=== PATIENT | female | born 1960 | race Hispanic/Latino ===

== ENCOUNTER 2021-01-15 12:20 | Inpatient (IN) | payer MEDICARE ==
[~2021-01-15] VITALS: Ht 160 cm; Wt 71.7 kg
[2021-01-15] MEDS ORDERED: ONDANSETRON HCL INJ 2MG/ML 2ML 2 MG/ML VIAL IV STA (12:43)
[2021-01-15 13:09] LABS: BASOPHILS % 0.6 % (0.0-1.0); EOSINOPHILS # (AUTO) 0.1 (0.0-0.4); EOSINOPHILS % 2.2 % (0.0-6.0); HEMATOCRIT 35.8 % (34.2-44.1); LYMPHOCYTES # (AUTO) 0.5 (1.0-3.2); LYMPHOCYTES % 8.1 % (18.0-39.1); MEAN CORPUSCULAR HEMOGLOBIN 28.4 pg (28-32); MEAN CORPUSCULAR HGB CONC 30.7 g/dL (31-35); MEAN CORPUSCULAR VOLUME 92.5 fL (81-99); MONOCYTES # (AUTO) 0.5 (0.2-0.8); MONOCYTES % 8.3 % (4.4-11.3); NEUTROPHILS # (AUTO) 5.1 (2.1-6.9); NEUTROPHILS % 80.5 % (38.7-80.0); PLATELET COUNT 230 x10e3/uL (140-360); RED BLOOD COUNT 3.87 x10e6/uL (3.6-5.1); RED CELL DISTRIBUTION WIDTH 15.7 % (11.7-14.4)
[2021-01-15] MEDS: MORPHINE SULFATE INJ 4 MG/ML INJ 1ML IV PRN (13:11)
[2021-01-15] MEDS ORDERED: MORPHINE SULFATE INJ 4 MG/ML INJ 1ML ONE (13:16)
[2021-01-15] MEDS ORDERED: ONDANSETRON HCL INJ 2MG/ML 2ML 2 MG/ML VIAL ONE (13:17)
[2021-01-15 13:29] LABS: ALBUMIN 3.1 g/dL (3.5-5.0); ALBUMIN/GLOBULIN RATIO 0.6 (0.8-2.0); ANION GAP 17.5 mmol/L (8-16); CALCIUM 8.2 mg/dL (8.4-10.2); CREATININE, SERUM 3.39 mg/dL (0.57-1.11); POTASSIUM 4.5 mmol/L (3.5-5.1)
[2021-01-15] MEDS ORDERED: SODIUM CHLORIDE 0.9% 50ML 50 ML ONE ×2 (13:32→16:38)
[2021-01-15] MEDS ORDERED: IOPAMIDOL 370 MG/ML 200 ML INFUS..BTL INJ ONE (13:33)
[2021-01-15] MEDS ORDERED: CEFEPIME 1GM/NS 0.9% 50 ML 50 ML IV STA (15:52)
[2021-01-15] MEDS ORDERED: VANCOMYCIN 1GM/NS 250 ML 250 ML IV STA (15:52)
[2021-01-15] MEDS ORDERED: CEFEPIME HCL 1 GM VIAL ONE (16:38)
[2021-01-15 17:54] VITALS: BP 120/65
[2021-01-15 18:48] VITALS: BP 183/72
[2021-01-15] MEDS ORDERED: PNEUMOCOCCAL VACCINE POLYVALENT 23 MCG/0.5 ML VIAL IM SCH (19:30)
[2021-01-15 20:00] VITALS: BP 146/87
[2021-01-15] MEDS ORDERED: NOVOLOG100 UNIT/1 SC (20:09)
[2021-01-15] MEDS ORDERED: CYCLOBENZAPRINE10 MG PO (20:09)
[2021-01-15] MEDS ORDERED: NOVOLIN N100 UNIT/1 SC ×2 (20:09)
[2021-01-15] MEDS ORDERED: PROZAC20 MG PO (20:09)
[2021-01-15] MEDS ORDERED: NEURONTIN300 MG PO (20:09)
[2021-01-15] MEDS ORDERED: AURYXIA210 MG PO (20:09)
[2021-01-15] MEDS ORDERED: BUSPIRONE HCL5 MG PO (20:09)
[2021-01-15] MEDS ORDERED: HYDROXYZINE HCL25 MG PO (20:09)
[2021-01-15] MEDS ORDERED: ULTRAM50 MG PO (20:09)
[2021-01-15] MEDS ORDERED: ATORVASTATIN CA20 MG PO (20:09)
[2021-01-15] MEDS ORDERED: NIFEDIPINE ER30 M1 PO (20:09)
[2021-01-15] MEDS ORDERED: LASIX80 MG PO (20:09)
[2021-01-15] MEDS ORDERED: ONDANSETRON HCL INJ 2MG/ML 2ML 2 MG/ML VIAL IV PRN (20:30)
[2021-01-15 21:00] VITALS: BP 146/87
[2021-01-15] MEDS: INSULIN LISPRO 100 UNIT/1 ML 3ML VIAL SQ SCH (21:00)
[2021-01-15] MEDS: MORPHINE SULFATE INJ 2 MG/ML SYR IV PRN (21:21)
[2021-01-16] VITALS (9 sets, daily range): BP systolic 127–169; BP diastolic 53–71
[2021-01-16] MEDS ORDERED: VANCOMYCIN 1GM/NS 250 ML 250 ML IV SCH (02:15)
[2021-01-16] MEDS ORDERED: BENZONATATE 100 MG CAP PO PRN (02:15)
[2021-01-16] MEDS ORDERED: HYDRALAZINE HCL 20 MG/ML VIAL IV PRN (02:15)
[2021-01-16] MEDS ORDERED: ONDANSETRON HCL INJ 2MG/ML 2ML 2 MG/ML VIAL IV PRN (02:15)
[2021-01-16] MEDS ORDERED: ACETAMINOPHEN 325 MG TAB PO PRN (02:15)
[2021-01-16] MEDS ORDERED: DOCUSATE SODIUM 100 MG CAP PO PRN (02:15)
[2021-01-16] MEDS ORDERED: SIMETHICONE 80 MG CHEW PO PRN (02:15)
[2021-01-16] MEDS ORDERED: POTASSIUM CHLORIDE 20 MEQ TAB CR PO PRN (02:15)
[2021-01-16] MEDS ORDERED: MELATONIN 5 MG TABLET PO PRN (02:15)
[2021-01-16] MEDS: CYCLOBENZAPRINE HCL 10 MG TAB PO PRN (03:18)
[2021-01-16] MEDS: MORPHINE SULFATE INJ 2 MG/ML SYR IV PRN ×2 (03:18→11:40)
[2021-01-16 05:53] LABS: BASOPHILS # (AUTO) 0.1 (0.0-0.1); BASOPHILS % 0.8 % (0.0-1.0); EOSINOPHILS # (AUTO) 0.2 (0.0-0.4); HEMATOCRIT 35.2 % (34.2-44.1); HEMOGLOBIN 10.8 g/dL (12.0-16.0); LYMPHOCYTES # (AUTO) 1.1 (1.0-3.2); LYMPHOCYTES % 18.4 % (18.0-39.1); MEAN CORPUSCULAR HEMOGLOBIN 28.6 pg (28-32); MEAN CORPUSCULAR HGB CONC 30.7 g/dL (31-35); MEAN CORPUSCULAR VOLUME 93.4 fL (81-99); MONOCYTES # (AUTO) 0.8 (0.2-0.8); MONOCYTES % 12.9 % (4.4-11.3); NEUTROPHILS # (AUTO) 3.8 (2.1-6.9); NEUTROPHILS % 63.6 % (38.7-80.0); PLATELET COUNT 202 x10e3/uL (140-360); RED BLOOD COUNT 3.77 x10e6/uL (3.6-5.1); RED CELL DISTRIBUTION WIDTH 16.1 % (11.7-14.4)
[2021-01-16 06:14] LABS: MAGNESIUM 2.4 MG/DL (1.3-2.1); PHOSPHORUS 4.8 MG/DL (2.3-4.7)
[2021-01-16 06:17] LABS: ALBUMIN 2.9 g/dL (3.5-5.0); ALBUMIN/GLOBULIN RATIO 0.7 (0.8-2.0); ANION GAP 15.9 mmol/L (8-16); CALCIUM 8.1 mg/dL (8.4-10.2); CREATININE, SERUM 4.46 mg/dL (0.57-1.11); POTASSIUM 4.9 mmol/L (3.5-5.1)
[2021-01-16] MEDS: DEXTROSE 50% SYRINGE 50 ML IV PRN (06:23)
[2021-01-16 06:36] LABS: THYROID STIMULATING HORMONE 3.391 uIU/mL (0.350-4.940)
[2021-01-16] MEDS: PANTOPRAZOLE SOD 40 MG TABEC PO SCH (07:30)
[2021-01-16] MEDS: INSULIN LISPRO 100 UNIT/1 ML 3ML VIAL SQ SCH ×2 (07:30→11:30)
[2021-01-16] MEDS ORDERED: KETOROLAC TROMETHAMINE 30 MG/ML VIAL IV NR (14:00)
[2021-01-16 14:07] LABS: IRON 33 ug/dL (50-170); TRANSFERRIN < 70 mg/dL (180-382)
[2021-01-16] MEDS: MORPHINE SULFATE INJ 4 MG/ML INJ 1ML IV PRN (15:34)
[2021-01-16] MEDS: HYDROCODONE/APAP 5MG-325MG TAB PO PRN (15:42)
[2021-01-16] MEDS ORDERED: VANCOMYCIN 750MG/NS 150ML IVPB 150 ML IV SCH (16:45)
[2021-01-16] MEDS: ATORVASTATIN 20 MG TAB PO SCH (20:54)
[2021-01-16] MEDS: HEPARIN SOD (PORCINE) 5,000 UNIT/ML VIAL SC SCH (20:54)
[2021-01-17] VITALS (9 sets, daily range): BP systolic 102–184; BP diastolic 50–75
[2021-01-17 06:15] LABS: BASOPHILS # (AUTO) 0.1 (0.0-0.1); BASOPHILS % 0.9 % (0.0-1.0); EOSINOPHILS # (AUTO) 0.2 (0.0-0.4); EOSINOPHILS % 3.7 % (0.0-6.0); HEMATOCRIT 34.8 % (34.2-44.1); HEMOGLOBIN 10.8 g/dL (12.0-16.0); LYMPHOCYTES # (AUTO) 1.1 (1.0-3.2); LYMPHOCYTES % 19.8 % (18.0-39.1); MEAN CORPUSCULAR HEMOGLOBIN 28.8 pg (28-32); MEAN CORPUSCULAR VOLUME 92.8 fL (81-99); MONOCYTES # (AUTO) 0.8 (0.2-0.8); MONOCYTES % 14.2 % (4.4-11.3); NEUTROPHILS # (AUTO) 3.3 (2.1-6.9); PLATELET COUNT 210 x10e3/uL (140-360); RED BLOOD COUNT 3.75 x10e6/uL (3.6-5.1)
[2021-01-17 06:25] LABS: ANION GAP 17.7 mmol/L (8-16); CREATININE, SERUM 5.72 mg/dL (0.57-1.11); MAGNESIUM 2.7 MG/DL (1.3-2.1); PHOSPHORUS 6.3 MG/DL (2.3-4.7)
[2021-01-17 06:28] LABS: POTASSIUM 5.7 mmol/L (3.5-5.1)
[2021-01-17 06:47] LABS: THYROID STIMULATING HORMONE 3.593 uIU/mL (0.350-4.940)
[2021-01-17] MEDS: FLUOXETINE HCL 20 MG CAP PO SCH (08:42)
[2021-01-17] MEDS: BUSPIRONE HCL 5 MG TAB PO SCH (08:42)
[2021-01-17] MEDS: PANTOPRAZOLE SOD 40 MG TABEC PO SCH (08:42)
[2021-01-17] MEDS: HEPARIN SOD (PORCINE) 5,000 UNIT/ML VIAL SC SCH ×2 (08:45→21:00)
[2021-01-17] MEDS: MORPHINE SULFATE INJ 2 MG/ML SYR IV PRN ×2 (08:52→23:19)
[2021-01-17] MEDS ORDERED: DEXTROSE 50% SYRINGE 50 ML IV PRN (13:15)
[2021-01-17] MEDS ORDERED: SOD POLYSTYRENE SULFONATE SUSP 15 GM/60 ML BTL PO NR (13:15)
[2021-01-17] MEDS ORDERED: DOCUSATE SODIUM 100 MG CAP PO NR (13:30)
[2021-01-17] MEDS ORDERED: INSULIN REGULAR, HUMAN 100 UNIT/1 ML 3ML VIAL SQ NR (13:45)
[2021-01-17] MEDS ORDERED: DEXTROSE 50% SYRINGE 50 ML IV STA (18:08)
[2021-01-17] MEDS ORDERED: SODIUM BICARBONATE 8.4% INJ 50 ML SYR IV STA (18:08)
[2021-01-17] MEDS ORDERED: CALCIUM CHLORIDE 13.6 MEQ in SODIUM CHLORIDE 0.9% 100 ML 100 ML IV ONE (18:15)
[2021-01-17] MEDS ORDERED: INSULIN REGULAR, HUMAN 100 UNIT/1 ML 3ML VIAL SQ ONE (18:15)
[2021-01-17] MEDS ORDERED: SOD POLYSTYRENE SULFONATE SUSP 15 GM/60 ML BTL PO ONE (18:15)
[2021-01-17] MEDS: DEXTROSE 50% SYRINGE 50 ML IV PRN (18:59)
[2021-01-17] MEDS ORDERED: DOCUSATE SODIUM 100 MG CAP PO ONE (19:00)
[2021-01-17] MEDS ORDERED: SODIUM CHLORIDE 0.9% 1000ML 1,000 ML ONE (19:43)
[2021-01-17] MEDS ORDERED: CALCIUM CHLORIDE 10% SYRINGE 10 ML IV ONE (19:45)
[2021-01-17] MEDS ORDERED: SODIUM CHLORIDE 0.9% 100 ML ONE (19:46)
[2021-01-17] MEDS: ATORVASTATIN 20 MG TAB PO SCH (23:20)
[2021-01-17] MEDS ORDERED: SODIUM CHLORIDE 0.9% 50ML 50 ML ONE (23:32)
[2021-01-18] VITALS (9 sets, daily range): BP systolic 98–194; BP diastolic 48–73
[2021-01-18 05:54] LABS: BASOPHILS # (AUTO) 0.1 (0.0-0.1); BASOPHILS % 0.8 % (0.0-1.0); EOSINOPHILS # (AUTO) 0.1 (0.0-0.4); EOSINOPHILS % 2.2 % (0.0-6.0); HEMATOCRIT 34.7 % (34.2-44.1); HEMOGLOBIN 10.5 g/dL (12.0-16.0); LYMPHOCYTES # (AUTO) 0.9 (1.0-3.2); LYMPHOCYTES % 14.7 % (18.0-39.1); MEAN CORPUSCULAR HEMOGLOBIN 28.8 pg (28-32); MEAN CORPUSCULAR HGB CONC 30.3 g/dL (31-35); MEAN CORPUSCULAR VOLUME 95.1 fL (81-99); MONOCYTES # (AUTO) 0.6 (0.2-0.8); NEUTROPHILS # (AUTO) 4.6 (2.1-6.9); NEUTROPHILS % 72.1 % (38.7-80.0); PLATELET COUNT 205 x10e3/uL (140-360); RED BLOOD COUNT 3.65 x10e6/uL (3.6-5.1)
[2021-01-18 06:10] LABS: ANION GAP 16.5 mmol/L (8-16); CALCIUM 8.4 mg/dL (8.4-10.2); CREATININE, SERUM 4.5 mg/dL (0.57-1.11); POTASSIUM 4.5 mmol/L (3.5-5.1)
[2021-01-18] MEDS ORDERED: VANCOMYCIN 750MG/NS 150ML IVPB 150 ML IV PRN (08:00)
[2021-01-18] MEDS: PANTOPRAZOLE SOD 40 MG TABEC PO SCH (09:06)
[2021-01-18] MEDS: HEPARIN SOD (PORCINE) 5,000 UNIT/ML VIAL SC SCH ×2 (09:06→20:57)
[2021-01-18] MEDS: FLUOXETINE HCL 20 MG CAP PO SCH (09:06)
[2021-01-18] MEDS: BUSPIRONE HCL 5 MG TAB PO SCH (09:06)
[2021-01-18] MEDS ORDERED: SODIUM CHLORIDE 0.9% 1000ML 2,000 ML ONE (12:55)
[2021-01-18] MEDS: MORPHINE SULFATE INJ 2 MG/ML SYR IV PRN (13:30)
[2021-01-18] MEDS ORDERED: NIFEDIPINE CR 30 MG TAB PO SCH (13:45)
[2021-01-18] MEDS: KETOROLAC TROMETHAMINE 30 MG/ML VIAL IV SCH ×2 (16:09→20:56)
[2021-01-18] MEDS ORDERED: NIFEDIPINE CR 30 MG TAB PO ONE (16:30)
[2021-01-18] MEDS: ATORVASTATIN 20 MG TAB PO SCH (20:56)
[2021-01-18] MEDS: DIPHENHYDRAMINE HCL 25 MG CAP PO PRN (21:00)
[2021-01-19] VITALS (9 sets, daily range): BP systolic 95–134; BP diastolic 45–88
[2021-01-19] MEDS: KETOROLAC TROMETHAMINE 30 MG/ML VIAL IV SCH ×4 (02:14→21:00)
[2021-01-19] MEDS: CYCLOBENZAPRINE HCL 10 MG TAB PO PRN (02:21)
[2021-01-19] MEDS: HYDROCODONE/APAP 5MG-325MG TAB PO PRN (02:46)
[2021-01-19 06:19] LABS: BASOPHILS % 0.7 % (0.0-1.0); EOSINOPHILS # (AUTO) 0.1 (0.0-0.4); EOSINOPHILS % 1.3 % (0.0-6.0); HEMATOCRIT 33.9 % (34.2-44.1); HEMOGLOBIN 10.3 g/dL (12.0-16.0); LYMPHOCYTES # (AUTO) 0.6 (1.0-3.2); LYMPHOCYTES % 13.1 % (18.0-39.1); MEAN CORPUSCULAR HEMOGLOBIN 29.3 pg (28-32); MEAN CORPUSCULAR HGB CONC 30.4 g/dL (31-35); MEAN CORPUSCULAR VOLUME 96.6 fL (81-99); MONOCYTES # (AUTO) 0.4 (0.2-0.8); MONOCYTES % 8.9 % (4.4-11.3); NEUTROPHILS # (AUTO) 3.4 (2.1-6.9); NEUTROPHILS % 75.8 % (38.7-80.0); PLATELET COUNT 169 x10e3/uL (140-360); RED BLOOD COUNT 3.51 x10e6/uL (3.6-5.1); RED CELL DISTRIBUTION WIDTH 16.2 % (11.7-14.4)
[2021-01-19 07:23] LABS: ALBUMIN 2.9 g/dL (3.5-5.0); ALBUMIN/GLOBULIN RATIO 0.7 (0.8-2.0); ANION GAP 18.1 mmol/L (8-16); CALCIUM 7.8 mg/dL (8.4-10.2); CREATININE, SERUM 3.19 mg/dL (0.57-1.11); POTASSIUM 4.1 mmol/L (3.5-5.1)
[2021-01-19] MEDS: PANTOPRAZOLE SOD 40 MG TABEC PO SCH (10:04)
[2021-01-19] MEDS: BUSPIRONE HCL 5 MG TAB PO SCH (10:04)
[2021-01-19] MEDS: FLUOXETINE HCL 20 MG CAP PO SCH (10:05)
[2021-01-19] MEDS: NIFEDIPINE CR 30 MG TAB PO SCH (10:05)
[2021-01-19] MEDS: HEPARIN SOD (PORCINE) 5,000 UNIT/ML VIAL SC SCH ×2 (10:12→21:00)
[2021-01-19] MEDS: DIPHENHYDRAMINE HCL 25 MG CAP PO PRN (16:04)
[2021-01-19] MEDS: ATORVASTATIN 20 MG TAB PO SCH (21:00)
[2021-01-20 06:06] VITALS: BP 136/52
[2021-01-20 06:10] LABS: BASOPHILS % 0.9 % (0.0-1.0); EOSINOPHILS # (AUTO) 0.1 (0.0-0.4); EOSINOPHILS % 2.6 % (0.0-6.0); HEMATOCRIT 33.4 % (34.2-44.1); HEMOGLOBIN 10.2 g/dL (12.0-16.0); LYMPHOCYTES % 22.3 % (18.0-39.1); MEAN CORPUSCULAR HEMOGLOBIN 28.7 pg (28-32); MEAN CORPUSCULAR HGB CONC 30.5 g/dL (31-35); MEAN CORPUSCULAR VOLUME 93.8 fL (81-99); MONOCYTES # (AUTO) 0.7 (0.2-0.8); MONOCYTES % 14.3 % (4.4-11.3); NEUTROPHILS # (AUTO) 2.8 (2.1-6.9); NEUTROPHILS % 59.7 % (38.7-80.0); PLATELET COUNT 185 x10e3/uL (140-360); RED BLOOD COUNT 3.56 x10e6/uL (3.6-5.1); RED CELL DISTRIBUTION WIDTH 15.8 % (11.7-14.4)
[2021-01-20 06:39] LABS: ANION GAP 16.3 mmol/L (8-16); CALCIUM 7.5 mg/dL (8.4-10.2); CREATININE, SERUM 4.47 mg/dL (0.57-1.11); POTASSIUM 4.3 mmol/L (3.5-5.1)
[2021-01-20 08:11] VITALS: BP 136/52
[2021-01-20] MEDS: NIFEDIPINE CR 30 MG TAB PO SCH ×2 (09:00→09:33)
[2021-01-20] MEDS: HEPARIN SOD (PORCINE) 5,000 UNIT/ML VIAL SC SCH ×2 (09:00→09:35)
[2021-01-20] MEDS: BUSPIRONE HCL 5 MG TAB PO SCH (09:32)
[2021-01-20] MEDS: FLUOXETINE HCL 20 MG CAP PO SCH (09:32)
[2021-01-20] MEDS: PANTOPRAZOLE SOD 40 MG TABEC PO SCH (09:32)
[2021-01-20] MEDS ORDERED: ALBUMIN 25% 12.5GM 0.25 GM/ML BTL IV PRN (11:30)
[2021-01-20] MEDS ORDERED: SODIUM CHLORIDE 0.9% 1000ML 2,000 ML IV PRN (11:30)
[2021-01-20 11:43] VITALS: BP 137/65
[2021-01-20] MEDS ORDERED: ONDANSETRON HCL 4 MG ORAL DISINTEGRATING TAB PO PRN (16:00)
[2021-01-20] MEDS ORDERED: PNEUMOCOCCAL VACCINE POLYVALENT 23 MCG/0.5 ML VIAL IM ONE (17:00)
[2021-01-20] MEDS ORDERED: VANCOMYCIN 750MG/NS 150ML IVPB 150 ML IV SCH (17:00)
[2021-01-20] MEDS ORDERED: ATORVASTATIN 40 MG TAB PO SCH (21:00)
== END 2021-01-20 16:47 | disposition home or self-care (01) | DRG 602 ==
LOC: ER 12:30 → ERHOLD 16:38 → MED/SURG2 17:24
PROVIDERS: ADMIT Internal Medicine; ATTEND Internal Medicine
PROC: 5A1D70Z Performance of Urinary Filtration, Intermittent, Less than 6 Hours Per Day (ICD-10-PCS; principal; 2021-01-17)
DX: L03.115 Cellulitis of right lower limb (principal); N18.6 End stage renal disease; I12.0 Hypertensive chronic kidney disease with stage 5 chronic kidney disease or end stage renal disease; I13.2 Hypertensive heart and chronic kidney disease with heart failure and with stage 5 chronic kidney disease, or end stage renal disease; M60.851 Other myositis, right thigh; E11.628 Type 2 diabetes mellitus with other skin complications; Z99.2 Dependence on renal dialysis; E11.22 Type 2 diabetes mellitus with diabetic chronic kidney disease; I50.9 Heart failure, unspecified; Z79.899 Other long term (current) drug therapy; E11.69 Type 2 diabetes mellitus with other specified complication; E78.5 Hyperlipidemia, unspecified; G47.00 Insomnia, unspecified; Z20.822 Contact with and (suspected) exposure to COVID-19; E11.40 Type 2 diabetes mellitus with diabetic neuropathy, unspecified; E11.649 Type 2 diabetes mellitus with hypoglycemia without coma
CPT/HCPCS: 36415; 72193; 80048; 80053; 82550; 82948; 83036; 83540; 83735; 84100; 84132; 84443; 84466; 85025; 86704; 86706; 87340; 90732; 93926; 93971; 96365; 96366; 97139; 99251; 99284; J0360; J0692; J1644; J1885; J2270; J2405; J3370; J7030; J7050; J7799; Q9967; U0002

== ENCOUNTER 2021-02-23 07:16 | Observation (INO) | payer MEDICARE ==
[~2021-02-23] VITALS: Ht 160 cm; Wt 70.3 kg
[~2021-02-23 07:16] MED LIST: ATORVASTATIN CA20 MG PO; AURYXIA210 MG PO; BUSPIRONE HCL5 MG PO; CYCLOBENZAPRINE10 MG PO; HYDROXYZINE HCL25 MG PO; LASIX80 MG PO; NEURONTIN300 MG PO; NIFEDIPINE ER30 M1 PO; NOVOLIN N100 UNIT/1 SC; NOVOLOG100 UNIT/1 SC; PROZAC20 MG PO; ULTRAM50 MG PO
[2021-02-23 07:41] LABS: BASOPHILS # (AUTO) 0.1 (0.0-0.1); BASOPHILS % 1.4 % (0.0-1.0); EOSINOPHILS # (AUTO) 0.1 (0.0-0.4); EOSINOPHILS % 3.2 % (0.0-6.0); HEMATOCRIT 36.1 % (34.2-44.1); HEMOGLOBIN 11.4 g/dL (12.0-16.0); LYMPHOCYTES # (AUTO) 0.6 (1.0-3.2); LYMPHOCYTES % 14.2 % (18.0-39.1); MEAN CORPUSCULAR HEMOGLOBIN 29.6 pg (28-32); MEAN CORPUSCULAR HGB CONC 31.6 g/dL (31-35); MEAN CORPUSCULAR VOLUME 93.8 fL (81-99); MONOCYTES # (AUTO) 0.6 (0.2-0.8); MONOCYTES % 12.8 % (4.4-11.3); NEUTROPHILS % 68.2 % (38.7-80.0); PLATELET COUNT 173 x10e3/uL (140-360); RED BLOOD COUNT 3.85 x10e6/uL (3.6-5.1); RED CELL DISTRIBUTION WIDTH 18.1 % (11.7-14.4)
[2021-02-23 07:59] LABS: ALBUMIN 3.2 g/dL (3.5-5.0); ALBUMIN/GLOBULIN RATIO 0.8 (0.8-2.0); ANION GAP 16.6 mmol/L (8-16); CALCIUM 7.5 mg/dL (8.4-10.2); CREATININE, SERUM 4.35 mg/dL (0.57-1.11); POTASSIUM 3.6 mmol/L (3.5-5.1)
[2021-02-23] MEDS ORDERED: DEXTROSE 10% 1,000 ML IV ONE (08:15)
[2021-02-23] MEDS ORDERED: SODIUM CHLORIDE 0.9% IV ONE ×2 (08:15)
[2021-02-23] MEDS ORDERED: DEXTROSE 10% IV ONE ×2 (08:15)
[2021-02-23] MEDS ORDERED: FUROSEMIDE INJ 10 MG/ML 2 ML VIAL IV ONE (11:30)
[2021-02-23] MEDS ORDERED: DEXTROSE 25% INJ 10 ML SYR IV ONE (12:30)
[2021-02-23] MEDS ORDERED: DEXTROSE 50% SYRINGE 50 ML IV ONE ×2 (12:42→12:45)
[2021-02-23] MEDS ORDERED: CLEOCIN HCL300 MG PO (13:11)
[2021-02-23] MEDS ORDERED: PREDNISONE10 MG PO (13:11)
[2021-02-23] MEDS ORDERED: ACYCLOVIR800 MG PO (13:11)
[2021-02-23] MEDS ORDERED: TYLENOL # 31 EA PO (13:11)
[2021-02-23] MEDS ORDERED: TARON FORTE CA1 EACH (13:11)
[2021-02-23] MEDS ORDERED: GABAPENTIN300 MG PO (13:11)
[2021-02-23] MEDS ORDERED: ASPIRIN81 MG PO (13:11)
[2021-02-23] MEDS ORDERED: SODIUM CHLORIDE 0.9% 1000ML 1,000 ML ONE (14:03)
[2021-02-23] MEDS ORDERED: ACETAMINOPHEN 325 MG TAB PO NR (14:45)
[2021-02-23] MEDS ORDERED: ACETAMINOPHEN 325 MG TAB ONE (14:55)
[2021-02-23] MEDS: DEXTROSE 50% SYRINGE 50 ML IV PRN ×3 (15:00→20:10)
[2021-02-24 06:37] LABS: BASOPHILS # (AUTO) 0.1 (0.0-0.1); BASOPHILS % 0.6 % (0.0-1.0); EOSINOPHILS # (AUTO) 0.1 (0.0-0.4); EOSINOPHILS % 1.5 % (0.0-6.0); HEMATOCRIT 35.1 % (34.2-44.1); LYMPHOCYTES # (AUTO) 0.9 (1.0-3.2); LYMPHOCYTES % 10.6 % (18.0-39.1); MEAN CORPUSCULAR HEMOGLOBIN 29.6 pg (28-32); MEAN CORPUSCULAR HGB CONC 31.3 g/dL (31-35); MEAN CORPUSCULAR VOLUME 94.4 fL (81-99); MONOCYTES # (AUTO) 0.6 (0.2-0.8); MONOCYTES % 7.5 % (4.4-11.3); NEUTROPHILS # (AUTO) 6.8 (2.1-6.9); NEUTROPHILS % 79.6 % (38.7-80.0); PLATELET COUNT 159 x10e3/uL (140-360); RED BLOOD COUNT 3.72 x10e6/uL (3.6-5.1)
[2021-02-24 06:47] LABS: CALCIUM 7.6 mg/dL (8.4-10.2); CREATININE, SERUM 3.16 mg/dL (0.57-1.11)
[2021-02-24 16:30] VITALS: BP 166/96
[2021-02-24 18:27] VITALS: BP 166/96
[2021-02-24 19:00] VITALS: BP 173/84
[2021-02-24] MEDS: FERRIC CITRATE 210 MG PO SCH (20:06)
[2021-02-24] MEDS: NIFEDIPINE CR 30 MG TAB PO SCH (20:50)
[2021-02-24] MEDS: HYDROXYZINE HCL 25 MG TAB PO SCH (20:51)
[2021-02-24] MEDS ORDERED: ATORVASTATIN 20 MG TAB PO SCH (21:00)
[2021-02-24 21:02] VITALS: BP 173/84
[2021-02-25 00:23] VITALS: BP 151/75
[2021-02-25] MEDS ORDERED: BENADRYL25 M1 PO (03:38)
[2021-02-25] MEDS ORDERED: DIPHENHYDRAMINE HCL 25 MG CAP PO PRN (03:45)
[2021-02-25 04:28] VITALS: BP 118/62
[2021-02-25 08:07] VITALS: BP 93/50
[2021-02-25 08:34] VITALS: BP 93/50
[2021-02-25] MEDS: FERRIC CITRATE 210 MG PO SCH (08:48)
[2021-02-25] MEDS: NIFEDIPINE CR 30 MG TAB PO SCH (08:48)
[2021-02-25] MEDS: HYDROXYZINE HCL 25 MG TAB PO SCH (08:48)
[2021-02-25] MEDS ORDERED: PREDNISONE 10 MG TAB PO SCH (09:00)
[2021-02-25] MEDS ORDERED: GABAPENTIN 300 MG CAP PO SCH (09:00)
[2021-02-25] MEDS ORDERED: FLUOXETINE HCL 20 MG CAP PO SCH (09:00)
[2021-02-25] MEDS ORDERED: ASPIRIN 81 MG CHEW TAB PO SCH (09:00)
[2021-02-25] MEDS ORDERED: BUSPIRONE HCL 5 MG TAB PO SCH (09:00)
== END 2021-02-25 10:57 | disposition home or self-care (01) ==
LOC: ER 08:13 → ERHOLD 09:06 → MED/SURG 02-24 16:17
PROVIDERS: ADMIT Family Medicine; ATTEND Family Medicine
DX: E11.649 Type 2 diabetes mellitus with hypoglycemia without coma (principal); E11.42 Type 2 diabetes mellitus with diabetic polyneuropathy; E11.21 Type 2 diabetes mellitus with diabetic nephropathy; E11.22 Type 2 diabetes mellitus with diabetic chronic kidney disease; I12.0 Hypertensive chronic kidney disease with stage 5 chronic kidney disease or end stage renal disease; E78.5 Hyperlipidemia, unspecified; E87.70 Fluid overload, unspecified; F32.9 Major depressive disorder, single episode, unspecified; N18.6 End stage renal disease; Z99.2 Dependence on renal dialysis; Z88.1 Allergy status to other antibiotic agents; Z91.15 Patient's noncompliance with renal dialysis; Z20.822 Contact with and (suspected) exposure to COVID-19; Z79.4 Long term (current) use of insulin; Z79.82 Long term (current) use of aspirin
CPT/HCPCS: 36415 ×3; 71045; 80048; 80053; 82948 ×3; 83605; 83880; 84484; 85025 ×2; 87040; 90935; 93005; 99285; G0378 ×3; J1940; J3410 ×2; J7030; J7512; J7799; U0002

== ENCOUNTER 2021-03-28 20:58 | Inpatient (IN) | payer MEDICARE ==
[~2021-03-28] VITALS: Ht 160 cm; Wt 70.3 kg
[2021-03-28] MEDS: PIPERACILLIN/TAZOBACTAM 2.25 GM in SODIUM CHLORIDE 0.9% 50ML 50 ML IV SCH (00:45)
[~2021-03-28 20:58] MED LIST changes: +ACYCLOVIR800 MG PO; +ASPIRIN81 MG PO; +BENADRYL25 M1 PO; +CLEOCIN HCL300 MG PO; +GABAPENTIN300 MG PO; +PREDNISONE10 MG PO; +TARON FORTE CA1 EACH; +TYLENOL # 31 EA PO
[2021-03-28] MEDS ORDERED: MORPHINE SULFATE INJ 4 MG/ML INJ 1ML IV STA (21:14)
[2021-03-28] MEDS ORDERED: ONDANSETRON HCL INJ 2MG/ML 2ML 2 MG/ML VIAL IV STA (21:14)
[2021-03-28] MEDS ORDERED: SODIUM CHLORIDE 0.9% 100 ML ONE (21:27)
[2021-03-28] MEDS ORDERED: IOPAMIDOL 370 MG/ML 200 ML INFUS..BTL INJ ONE (21:28)
[2021-03-28 21:35] LABS: BASOPHILS % 0.4 % (0.0-1.0); EOSINOPHILS # (AUTO) 0.1 (0.0-0.4); EOSINOPHILS % 0.8 % (0.0-6.0); HEMATOCRIT 37.9 % (34.2-44.1); HEMOGLOBIN 11.8 g/dL (12.0-16.0); LYMPHOCYTES # (AUTO) 1.3 (1.0-3.2); LYMPHOCYTES % 11.9 % (18.0-39.1); MEAN CORPUSCULAR HEMOGLOBIN 29.9 pg (28-32); MEAN CORPUSCULAR HGB CONC 31.1 g/dL (31-35); MEAN CORPUSCULAR VOLUME 96.2 fL (81-99); MONOCYTES # (AUTO) 0.8 (0.2-0.8); MONOCYTES % 7.5 % (4.4-11.3); NEUTROPHILS # (AUTO) 8.3 (2.1-6.9); PLATELET COUNT 154 x10e3/uL (140-360); RED BLOOD COUNT 3.94 x10e6/uL (3.6-5.1); RED CELL DISTRIBUTION WIDTH 17.7 % (11.7-14.4)
[2021-03-28 21:45] LABS: INR 1.06; PARTIAL THROMBOPLASTIN TIME 28.9 seconds (23.8-35.5); PROTHROMBIN TIME 14.4 seconds (11.9-14.5)
[2021-03-28 21:54] LABS: ALBUMIN 3.9 g/dL (3.5-5.0); ALBUMIN/GLOBULIN RATIO 0.9 (0.8-2.0); ANION GAP 22.1 mmol/L (8-16); CALCIUM 8.7 mg/dL (8.4-10.2); CREATININE, SERUM 5.72 mg/dL (0.57-1.11); POTASSIUM 5.1 mmol/L (3.5-5.1)
[2021-03-28 22:11] LABS: AMYLASE 26 U/L (25-125); LIPASE 53 U/L (8-78)
[2021-03-28] MEDS ORDERED: DEXTROSE 50% SYRINGE 50 ML IV PRN (23:15)
[2021-03-28] MEDS ORDERED: SODIUM CHLORIDE FLUSH 10 ML SYR INJ PRN (23:15)
[2021-03-28] MEDS ORDERED: HYDRALAZINE HCL 20 MG/ML VIAL IV PRN (23:15)
[2021-03-28] MEDS ORDERED: ONDANSETRON HCL INJ 2MG/ML 2ML 2 MG/ML VIAL IV PRN (23:15)
[2021-03-28] MEDS ORDERED: MORPHINE SULFATE INJ 4 MG/ML INJ 1ML IV PRN (23:15)
[2021-03-29] VITALS (9 sets, daily range): BP systolic 141–179; BP diastolic 53–78
[2021-03-29] MEDS ORDERED: SODIUM CHLORIDE 0.9% 250ML 250 ML ONE (00:55)
[2021-03-29] MEDS: METRONIDAZOLE 500MG/NS 100ML 100 ML IV SCH ×5 (01:30→23:01)
[2021-03-29] MEDS ORDERED: PEG (High)/E-LYTE SOLN 4,000 ML BTL PO ONE (02:00)
[2021-03-29 06:39] LABS: BASOPHILS # (AUTO) 0.1 (0.0-0.1); BASOPHILS % 0.6 % (0.0-1.0); EOSINOPHILS # (AUTO) 0.1 (0.0-0.4); EOSINOPHILS % 1.4 % (0.0-6.0); LYMPHOCYTES % 9.9 % (18.0-39.1); MEAN CORPUSCULAR HEMOGLOBIN 30.5 pg (28-32); MEAN CORPUSCULAR HGB CONC 31.4 g/dL (31-35); MONOCYTES # (AUTO) 0.9 (0.2-0.8); MONOCYTES % 9.3 % (4.4-11.3); NEUTROPHILS # (AUTO) 7.7 (2.1-6.9); NEUTROPHILS % 78.4 % (38.7-80.0); PLATELET COUNT 134 x10e3/uL (140-360); RED BLOOD COUNT 3.61 x10e6/uL (3.6-5.1); RED CELL DISTRIBUTION WIDTH 17.9 % (11.7-14.4)
[2021-03-29 06:58] LABS: ALBUMIN 3.5 g/dL (3.5-5.0); ALBUMIN/GLOBULIN RATIO 0.9 (0.8-2.0); ANION GAP 21.2 mmol/L (8-16); CREATININE, SERUM 5.97 mg/dL (0.57-1.11); POTASSIUM 5.2 mmol/L (3.5-5.1)
[2021-03-29] MEDS: INSULIN REGULAR, HUMAN 100 UNIT/1 ML 3ML VIAL SQ SCH ×4 (07:30→20:19)
[2021-03-29] MEDS ORDERED: MINERAL OIL 132 ML BTL PR PRN (08:45)
[2021-03-29] MEDS: PIPERACILLIN/TAZOBACTAM 2.25 GM in SODIUM CHLORIDE 0.9% 50ML 50 ML IV SCH ×2 (09:42→23:01)
[2021-03-29] MEDS ORDERED: DEXTROSE 5%/0.45% SOD CHL 1,000 ML IV ONE (10:19)
[2021-03-29] MEDS ORDERED: SOD POLYSTYRENE SULFONATE SUSP 15 GM/60 ML BTL PO ONE (11:30)
[2021-03-29] MEDS ORDERED: LACTULOSE SYRUP 20 GM/30 ML UDC PO ONE (11:30)
[2021-03-29 11:32] LABS: WBC,FECAL (FECAL LACTOFERRIN) NEGATIVE (NEGATIVE)
[2021-03-29] MEDS ORDERED: PROPOFOL IV EMULSION 10 MG/ML 20 ML VIAL ONE (13:00)
[2021-03-29] MEDS ORDERED: GLUCAGON FOR INJ 1 MG VIAL ONE (13:00)
[2021-03-29] MEDS ORDERED: TRAMADOL HCL 50 MG TAB PO PRN (14:00)
[2021-03-29] MEDS ORDERED: HYDRALAZINE HCL 20 MG/ML VIAL IV PRN (14:00)
[2021-03-29] MEDS ORDERED: DIPHENHYDRAMINE HCL 25 MG CAP PO PRN (14:00)
[2021-03-29] MEDS ORDERED: ONDANSETRON HCL INJ 2MG/ML 2ML 2 MG/ML VIAL IV PRN (14:00)
[2021-03-29] MEDS ORDERED: ACETAMINOPHEN 325 MG TAB PO PRN (14:00)
[2021-03-29] MEDS ORDERED: ACETAMINOPHEN/CODEINE 300MG - 30MG TAB PO PRN (14:00)
[2021-03-29] MEDS: FERRIC CITRATE 210 MG PO SCH ×2 (15:00→21:00)
[2021-03-29] MEDS: GABAPENTIN 300 MG CAP PO SCH (15:54)
[2021-03-29] MEDS: FERROUS SULFATE 325 MG TAB PO SCH (15:54)
[2021-03-29] MEDS: FAMOTIDINE 20 MG/2 ML VIAL IV SCH (15:54)
[2021-03-29] MEDS: NIFEDIPINE CR 30 MG TAB PO SCH (15:55)
[2021-03-29] MEDS: HYDROXYZINE HCL 25 MG TAB PO SCH ×2 (15:55→21:00)
[2021-03-29] MEDS: NPH, HUMAN INSULIN ISOPHANE 100 UNIT/1 ML 3ML VIAL SQ SCH ×2 (15:55→20:19)
[2021-03-29] MEDS: ACYCLOVIR 200 MG CAP PO SCH (16:03)
[2021-03-29] MEDS: CYCLOBENZAPRINE HCL 10 MG TAB PO SCH ×2 (16:03→21:00)
[2021-03-29] MEDS: INSULIN LISPRO 100 UNIT/1 ML 3ML VIAL SQ SCH (16:03)
[2021-03-29] MEDS ORDERED: SODIUM CHLORIDE 0.9% 1000ML 2,000 ML ONE (17:43)
[2021-03-29] MEDS: MINERAL OIL/PETROLAT/GLYCERI 2OZ CRM TOP SCH ×2 (18:10→21:00)
[2021-03-29] MEDS: MESALAMINE 1,000 MG SUPP RC SCH (21:00)
[2021-03-29] MEDS: ATORVASTATIN 40 MG TAB PO SCH (21:00)
[2021-03-29] MEDS ORDERED: ATORVASTATIN 20 MG TAB PO SCH (21:00)
[2021-03-30] VITALS (8 sets, daily range): BP systolic 100–126; BP diastolic 50–59
[2021-03-30] MEDS: METRONIDAZOLE 500MG/NS 100ML 100 ML IV SCH ×3 (05:09→17:20)
[2021-03-30 05:32] LABS: BASOPHILS # (AUTO) 0.1 (0.0-0.1); BASOPHILS % 0.7 % (0.0-1.0); EOSINOPHILS # (AUTO) 0.1 (0.0-0.4); EOSINOPHILS % 1.9 % (0.0-6.0); HEMATOCRIT 32.4 % (34.2-44.1); HEMOGLOBIN 10.3 g/dL (12.0-16.0); LYMPHOCYTES # (AUTO) 0.8 (1.0-3.2); LYMPHOCYTES % 12.2 % (18.0-39.1); MEAN CORPUSCULAR HEMOGLOBIN 30.5 pg (28-32); MEAN CORPUSCULAR HGB CONC 31.8 g/dL (31-35); MEAN CORPUSCULAR VOLUME 95.9 fL (81-99); MONOCYTES # (AUTO) 0.7 (0.2-0.8); MONOCYTES % 9.8 % (4.4-11.3); NEUTROPHILS # (AUTO) 5.1 (2.1-6.9); NEUTROPHILS % 75.3 % (38.7-80.0); PLATELET COUNT 131 x10e3/uL (140-360); RED BLOOD COUNT 3.38 x10e6/uL (3.6-5.1)
[2021-03-30 06:07] LABS: ALBUMIN/GLOBULIN RATIO 0.9 (0.8-2.0); ANION GAP 17.1 mmol/L (8-16); CALCIUM 7.7 mg/dL (8.4-10.2); CHOL/HDL RATIO 2.5 (3.0-3.6); CREATININE, SERUM 3.97 mg/dL (0.57-1.11); POTASSIUM 4.1 mmol/L (3.5-5.1)
[2021-03-30] MEDS: INSULIN REGULAR, HUMAN 100 UNIT/1 ML 3ML VIAL SQ SCH ×4 (07:30→21:00)
[2021-03-30] MEDS: NPH, HUMAN INSULIN ISOPHANE 100 UNIT/1 ML 3ML VIAL SQ SCH ×4 (07:30→21:00)
[2021-03-30] MEDS: INSULIN LISPRO 100 UNIT/1 ML 3ML VIAL SQ SCH ×3 (07:51→17:26)
[2021-03-30] MEDS: FERRIC CITRATE 210 MG PO SCH ×4 (09:00→21:00)
[2021-03-30] MEDS: HYDROXYZINE HCL 25 MG TAB PO SCH ×3 (09:32→21:00)
[2021-03-30] MEDS: GABAPENTIN 300 MG CAP PO SCH ×2 (09:32→17:26)
[2021-03-30] MEDS: CYCLOBENZAPRINE HCL 10 MG TAB PO SCH ×3 (09:32→21:00)
[2021-03-30] MEDS: BUSPIRONE HCL 5 MG TAB PO SCH (09:32)
[2021-03-30] MEDS: FERROUS SULFATE 325 MG TAB PO SCH ×2 (09:32→17:19)
[2021-03-30] MEDS: MINERAL OIL/PETROLAT/GLYCERI 2OZ CRM TOP SCH ×4 (09:33→21:00)
[2021-03-30] MEDS: FLUOXETINE HCL 20 MG CAP PO SCH (09:33)
[2021-03-30] MEDS: NIFEDIPINE CR 30 MG TAB PO SCH ×2 (09:33→17:20)
[2021-03-30] MEDS: ACYCLOVIR 200 MG CAP PO SCH ×2 (09:33→17:20)
[2021-03-30] MEDS: PREDNISONE 10 MG TAB PO SCH (09:33)
[2021-03-30] MEDS: FAMOTIDINE 20 MG/2 ML VIAL IV SCH ×2 (09:36→17:19)
[2021-03-30 12:46] LABS: C DIFFICILE TOXIN A&B AMP PROB NEGATIVE (NEGATIVE)
[2021-03-30] MEDS: PIPERACILLIN/TAZOBACTAM 2.25 GM in SODIUM CHLORIDE 0.9% 50ML 50 ML IV SCH ×2 (12:59→23:16)
[2021-03-30] MEDS: MESALAMINE 1,000 MG SUPP RC SCH (21:00)
[2021-03-30] MEDS: ATORVASTATIN 40 MG TAB PO SCH (21:00)
[2021-03-31] VITALS (9 sets, daily range): BP systolic 96–127; BP diastolic 48–68
[2021-03-31] MEDS: METRONIDAZOLE 500MG/NS 100ML 100 ML IV SCH ×5 (05:20→23:54)
[2021-03-31 05:28] LABS: ANION GAP 18.4 mmol/L (8-16); CALCIUM 7.4 mg/dL (8.4-10.2); POTASSIUM 4.4 mmol/L (3.5-5.1)
[2021-03-31] MEDS: INSULIN REGULAR, HUMAN 100 UNIT/1 ML 3ML VIAL SQ SCH ×4 (07:30→21:00)
[2021-03-31] MEDS: NPH, HUMAN INSULIN ISOPHANE 100 UNIT/1 ML 3ML VIAL SQ SCH ×4 (07:30→21:00)
[2021-03-31] MEDS: INSULIN LISPRO 100 UNIT/1 ML 3ML VIAL SQ SCH ×3 (08:00→16:03)
[2021-03-31] MEDS: ACYCLOVIR 200 MG CAP PO SCH ×2 (08:44→16:13)
[2021-03-31] MEDS: HYDROXYZINE HCL 25 MG TAB PO SCH ×3 (08:44→21:41)
[2021-03-31] MEDS: PREDNISONE 10 MG TAB PO SCH (08:44)
[2021-03-31] MEDS: CYCLOBENZAPRINE HCL 10 MG TAB PO SCH ×3 (08:44→21:41)
[2021-03-31] MEDS: BUSPIRONE HCL 5 MG TAB PO SCH (08:44)
[2021-03-31] MEDS: GABAPENTIN 300 MG CAP PO SCH ×2 (08:44→16:12)
[2021-03-31] MEDS: FLUOXETINE HCL 20 MG CAP PO SCH (08:44)
[2021-03-31] MEDS: FERRIC CITRATE 210 MG PO SCH ×3 (08:45→21:00)
[2021-03-31] MEDS: FERROUS SULFATE 325 MG TAB PO SCH ×2 (08:45→16:12)
[2021-03-31] MEDS: FAMOTIDINE 20 MG/2 ML VIAL IV SCH ×2 (08:45→16:12)
[2021-03-31] MEDS: MINERAL OIL/PETROLAT/GLYCERI 2OZ CRM TOP SCH ×4 (08:51→21:41)
[2021-03-31] MEDS: NIFEDIPINE CR 30 MG TAB PO SCH ×2 (09:00→16:12)
[2021-03-31] MEDS: PIPERACILLIN/TAZOBACTAM 2.25 GM in SODIUM CHLORIDE 0.9% 50ML 50 ML IV SCH ×2 (12:30→22:50)
[2021-03-31] MEDS ORDERED: ONDANSETRON HCL 4 MG ORAL DISINTEGRATING TAB PO PRN (13:00)
[2021-03-31] MEDS ORDERED: SODIUM CHLORIDE 0.9% 1000ML 2,000 ML IV PRN (16:45)
[2021-03-31] MEDS ORDERED: SODIUM CHLORIDE 0.9% 250ML 500 ML IV PRN (16:45)
[2021-03-31] MEDS ORDERED: ALBUMIN 25% 12.5GM 0.25 GM/ML BTL IV PRN (16:45)
[2021-03-31] MEDS: ATORVASTATIN 40 MG TAB PO SCH (21:41)
[2021-03-31] MEDS: MESALAMINE 1,000 MG SUPP RC SCH (21:41)
[2021-04-01] MEDS: METRONIDAZOLE 500MG/NS 100ML 100 ML IV SCH ×2 (05:10→12:08)
[2021-04-01] MEDS: NPH, HUMAN INSULIN ISOPHANE 100 UNIT/1 ML 3ML VIAL SQ SCH ×2 (07:30→11:30)
[2021-04-01] MEDS: INSULIN REGULAR, HUMAN 100 UNIT/1 ML 3ML VIAL SQ SCH ×3 (07:30→16:30)
[2021-04-01] MEDS: INSULIN LISPRO 100 UNIT/1 ML 3ML VIAL SQ SCH ×3 (08:00→17:00)
[2021-04-01 08:11] VITALS: BP 158/61
[2021-04-01 08:54] VITALS: BP 158/61
[2021-04-01] MEDS: FERRIC CITRATE 210 MG PO SCH ×2 (09:00→14:39)
[2021-04-01] MEDS: MINERAL OIL/PETROLAT/GLYCERI 2OZ CRM TOP SCH ×2 (09:00→12:08)
[2021-04-01] MEDS: FLUOXETINE HCL 20 MG CAP PO SCH (09:33)
[2021-04-01] MEDS: GABAPENTIN 300 MG CAP PO SCH (09:33)
[2021-04-01] MEDS: NIFEDIPINE CR 30 MG TAB PO SCH (09:33)
[2021-04-01] MEDS: BUSPIRONE HCL 5 MG TAB PO SCH (09:33)
[2021-04-01] MEDS: CYCLOBENZAPRINE HCL 10 MG TAB PO SCH (09:33)
[2021-04-01] MEDS: ACYCLOVIR 200 MG CAP PO SCH (09:33)
[2021-04-01] MEDS: PREDNISONE 10 MG TAB PO SCH (09:33)
[2021-04-01] MEDS: FAMOTIDINE 20 MG/2 ML VIAL IV SCH (09:34)
[2021-04-01] MEDS: FERROUS SULFATE 325 MG TAB PO SCH (09:34)
[2021-04-01] MEDS: HYDROXYZINE HCL 25 MG TAB PO SCH (09:34)
[2021-04-01] MEDS: PIPERACILLIN/TAZOBACTAM 2.25 GM in SODIUM CHLORIDE 0.9% 50ML 50 ML IV SCH (10:57)
[2021-04-01 12:17] VITALS: BP 170/88
[2021-04-01] MEDS ORDERED: HUMULIN N100 UNITS/ SQ (15:20)
[2021-04-01] MEDS ORDERED: Insulin Lispro SQ (15:20)
[2021-04-01] MEDS ORDERED: CANASA1000 MG RC (15:20)
[2021-04-01] MEDS ORDERED: FLAGYL500 MG PO (16:11)
[2021-04-01 16:38] VITALS: BP 118/74
== END 2021-04-01 17:21 | disposition home or self-care (01) | DRG 385 ==
LOC: ER 21:04 → ERHOLD 23:11 → MED/SURG3 03-29 00:15
PROVIDERS: ADMIT Internal Medicine; ATTEND Internal Medicine
PROC: 0DBG8ZX Excision of Left Large Intestine, Via Natural or Artificial Opening Endoscopic, Diagnostic (ICD-10-PCS; 2021-03-29)
PROC: 0DBL8ZZ Excision of Transverse Colon, Via Natural or Artificial Opening Endoscopic (ICD-10-PCS; 2021-03-29)
PROC: 0DBN8ZX Excision of Sigmoid Colon, Via Natural or Artificial Opening Endoscopic, Diagnostic (ICD-10-PCS; 2021-03-29)
PROC: 5A1D70Z Performance of Urinary Filtration, Intermittent, Less than 6 Hours Per Day (ICD-10-PCS; principal; 2021-03-29 10:25)
DX: K51.311 Ulcerative (chronic) rectosigmoiditis with rectal bleeding (principal); N18.6 End stage renal disease; I13.2 Hypertensive heart and chronic kidney disease with heart failure and with stage 5 chronic kidney disease, or end stage renal disease; E11.22 Type 2 diabetes mellitus with diabetic chronic kidney disease; I50.9 Heart failure, unspecified; Z99.2 Dependence on renal dialysis; D63.8 Anemia in other chronic diseases classified elsewhere; D69.6 Thrombocytopenia, unspecified; E87.5 Hyperkalemia
CPT/HCPCS: 36415; 45380; 74174; 80048; 80053; 80061; 82150; 82948; 83630; 83690; 83993; 85025; 85610; 85730; 86704; 86706; 86850; 86900; 87040; 87045; 87177; 87328; 87340; 87493; 88305; 90962; 93005; 99284; J0360; J1610; J1817; J2270; J2405; J2543; J3410; J7030; J7050; J7512; J7799; Q9967; U0002

== ENCOUNTER 2021-04-25 10:46 | Emergency (ER) | payer MEDICARE ==
[~2021-04-25] VITALS: Ht 160 cm; Wt 70.3 kg
[~2021-04-25 10:46] MED LIST changes: +CANASA1000 MG RC; +FLAGYL500 MG PO; +HUMULIN N100 UNITS/ SQ; +Insulin Lispro SQ
[2021-04-25 13:00] LABS: BASOPHILS # (AUTO) 0.1 (0.0-0.1); BASOPHILS % 1.1 % (0.0-1.0); EOSINOPHILS # (AUTO) 0.2 (0.0-0.4); EOSINOPHILS % 4.5 % (0.0-6.0); HEMATOCRIT 34.7 % (34.2-44.1); HEMOGLOBIN 10.8 g/dL (12.0-16.0); LYMPHOCYTES % 20.7 % (18.0-39.1); MEAN CORPUSCULAR HEMOGLOBIN 30.1 pg (28-32); MEAN CORPUSCULAR HGB CONC 31.1 g/dL (31-35); MEAN CORPUSCULAR VOLUME 96.7 fL (81-99); MONOCYTES # (AUTO) 0.6 (0.2-0.8); MONOCYTES % 12.8 % (4.4-11.3); NEUTROPHILS # (AUTO) 2.8 (2.1-6.9); NEUTROPHILS % 60.5 % (38.7-80.0); PLATELET COUNT 206 x10e3/uL (140-360); RED BLOOD COUNT 3.59 x10e6/uL (3.6-5.1)
[2021-04-25 13:24] LABS: ALBUMIN 3.5 g/dL (3.5-5.0); ALBUMIN/GLOBULIN RATIO 0.8 (0.8-2.0); ANION GAP 21.3 mmol/L (8-16); CREATININE, SERUM 5.84 mg/dL (0.57-1.11)
[2021-04-25 13:33] LABS: CREATINE KINASE MB 3.2 ng/mL (0-5.0)
[2021-04-25] MEDS ORDERED: LABETALOL HCL 5 MG/ML 20ML VIAL IV STA (13:40)
[2021-04-25 14:09] LABS: POTASSIUM 6.3 mmol/L (3.5-5.1)
[2021-04-25] MEDS ORDERED: SODIUM BICARBONATE 8.4% INJ 50 ML SYR IV NR (14:15)
[2021-04-25] MEDS ORDERED: CALCIUM GLUCONATE 10% INJ 4.65 MEQ in SODIUM CHLORIDE 0.9% 50ML 50 ML IV ONE (14:15)
[2021-04-25] MEDS ORDERED: DEXTROSE 50% SYRINGE 50 ML IV STA (14:15)
[2021-04-25] MEDS ORDERED: SOD POLYSTYRENE SULFONATE SUSP 15 GM/60 ML BTL PO ONE (14:30)
[2021-04-25] MEDS ORDERED: INSULIN REGULAR, HUMAN 100 UNIT/1 ML 3ML VIAL IV ONE (14:30)
== END 2021-04-25 16:14 | disposition other institution (70) ==
LOC: ER 12:16
DX: I62.00 Nontraumatic subdural hemorrhage, unspecified (principal); I10 Essential (primary) hypertension; I12.0 Hypertensive chronic kidney disease with stage 5 chronic kidney disease or end stage renal disease; E11.22 Type 2 diabetes mellitus with diabetic chronic kidney disease; N18.6 End stage renal disease; Z99.2 Dependence on renal dialysis; I50.9 Heart failure, unspecified; E78.5 Hyperlipidemia, unspecified; F41.9 Anxiety disorder, unspecified; D64.9 Anemia, unspecified; E87.5 Hyperkalemia
CPT/HCPCS: 36415; 70450; 71045; 80053; 82550; 82553; 84484; 85025; 93005; 99284; J0610; J1817; J3490; J7799

== ENCOUNTER 2021-05-02 22:59 | Emergency (ER) | payer OTHER, MEDICARE ==
[~2021-05-02] VITALS: Ht 160 cm; Wt 70.3 kg
[2021-05-02] MEDS ORDERED: HYDROCODONE/APAP 10MG-325MG TAB PO ONE (23:15)
[2021-05-03 01:55] VITALS: BP 178/68
[2021-05-03] MEDS ORDERED: ULTRAM50 MG PO (03:43)
== END 2021-05-03 03:46 | disposition home or self-care (01) ==
LOC: ER 23:10
DX: S52.022A Displaced fracture of olecranon process without intraarticular extension of left ulna, initial encounter for closed fracture (principal); W01.0XXA Fall on same level from slipping, tripping and stumbling without subsequent striking against object, initial encounter; Y92.019 Unspecified place in single-family (private) house as the place of occurrence of the external cause; I13.2 Hypertensive heart and chronic kidney disease with heart failure and with stage 5 chronic kidney disease, or end stage renal disease; I50.9 Heart failure, unspecified; N18.6 End stage renal disease; E11.22 Type 2 diabetes mellitus with diabetic chronic kidney disease; Z99.2 Dependence on renal dialysis
CPT/HCPCS: 99283

== ENCOUNTER 2021-08-18 13:31 | Emergency (ER) | payer MEDICARE, OTHER ==
[~2021-08-18] VITALS: Ht 160 cm; Wt 70.3 kg
[2021-08-18 15:01] LABS: BASOPHILS # (AUTO) 0.1 (0.0-0.1); BASOPHILS % 0.8 % (0.0-1.0); EOSINOPHILS # (AUTO) 0.1 (0.0-0.4); EOSINOPHILS % 1.9 % (0.0-6.0); HEMATOCRIT 35.6 % (34.2-44.1); HEMOGLOBIN 11.4 g/dL (12.0-16.0); LYMPHOCYTES # (AUTO) 0.7 (1.0-3.2); LYMPHOCYTES % 10.8 % (18.0-39.1); MEAN CORPUSCULAR HEMOGLOBIN 29.9 pg (28-32); MEAN CORPUSCULAR VOLUME 93.4 fL (81-99); MONOCYTES # (AUTO) 0.6 (0.2-0.8); MONOCYTES % 9.4 % (4.4-11.3); NEUTROPHILS # (AUTO) 4.8 (2.1-6.9); NEUTROPHILS % 76.9 % (38.7-80.0); PLATELET COUNT 159 x10e3/uL (140-360); RED BLOOD COUNT 3.81 x10e6/uL (3.6-5.1); RED CELL DISTRIBUTION WIDTH 14.9 % (11.7-14.4)
[2021-08-18 15:09] LABS: INR 1.09; PROTHROMBIN TIME 14.5 seconds (11.9-14.5)
[2021-08-18 15:10] LABS: PARTIAL THROMBOPLASTIN TIME 30.3 seconds (23.8-35.5)
[2021-08-18 15:16] LABS: ALBUMIN 3.6 g/dL (3.5-5.0); ALBUMIN/GLOBULIN RATIO 0.8 (0.8-2.0); ANION GAP 16.5 mmol/L (8-16); CALCIUM 8.7 mg/dL (8.4-10.2); CREATININE, SERUM 3.5 mg/dL (0.57-1.11); POTASSIUM 4.5 mmol/L (3.5-5.1)
[2021-08-18 15:24] LABS: CREATINE KINASE MB 6.6 ng/mL (0-5.0)
[2021-08-18] MEDS ORDERED: KETOROLAC TROMETHAMINE 60 MG/2 ML VIAL IM ONE (18:15)
[2021-08-18] MEDS ORDERED: HYDRALAZINE HCL 20 MG/ML VIAL IV STA (18:19)
[2021-08-18] MEDS ORDERED: Morphine 4mg Syringe 4 MG/ML INJ IV STA (18:20)
[2021-08-18] MEDS ORDERED: ONDANSETRON HCL INJ 2MG/ML 2ML 2 MG/ML VIAL IV STA (18:39)
[2021-08-18] MEDS ORDERED: ONDANSETRON HCL INJ 2MG/ML 2ML 2 MG/ML VIAL ONE (18:43)
[2021-08-18] MEDS ORDERED: ACETAMINOPHEN-1 EAC4 PO (19:37)
[2021-08-18] MEDS ORDERED: CIPRO500 MG PO (19:38)
[2021-08-18 20:05] VITALS: BP 153/72
== END 2021-08-18 20:16 | disposition home or self-care (01) ==
LOC: ER 14:46
DX: I87.2 Venous insufficiency (chronic) (peripheral) (principal); I12.0 Hypertensive chronic kidney disease with stage 5 chronic kidney disease or end stage renal disease; E11.22 Type 2 diabetes mellitus with diabetic chronic kidney disease; N18.6 End stage renal disease; Z99.2 Dependence on renal dialysis; I74.3 Embolism and thrombosis of arteries of the lower extremities; I50.9 Heart failure, unspecified; E78.5 Hyperlipidemia, unspecified; F41.9 Anxiety disorder, unspecified
CPT/HCPCS: 36415; 71045; 73502; 73552; 73562; 80053; 82550; 82553; 83880; 84484; 85025; 85610; 85730; 87040; 93926; 93971; 99284; J0360; J2270; J2405